=== PATIENT | female | born 1935 | race Caucasian/White ===

== ENCOUNTER 2020-01-30 19:58 | Emergency (ER) | payer OTHER ==
--- NOTE | 2020-01-30 20:09 | TELE ---
HPI Do you have fever,cough or shortness of breath?: Yes - General Reason For Visit: COVID TESTING Time Seen by Provider: 01/30/20 20:04 History Source: Patient Exam Limitations: No Limitations - History of Present Illness This interaction was via phone. 01/30/20 20:05 84 year old female overall malaise, tmax 100, abdominal pain, headache, has nasal congestion for the last 6 days. patient reports symptoms are waxing and waning. denies chest tightness or shortness of breath. patient sent to [facility] by PCP Dr. reinoso for covid testing. PMHX: breast cancer, hypertension 01/30/20 20:10 01/30/20 20:12 Past History - Travel History Traveled outside of the country in the last 30 days: No Close contact w/someone who was outside of country & ill: No - Medical History Allergies/Adverse Reactions: Allergies Allergy/AdvReac Type Severity Reaction Status Date / Time Seasonal allergies Allergy Uncoded 01/07/17 11:54 Home Medications: Ambulatory Orders Aspirin [Aspirin Ec] 81 mg PO DAILY 01/07/17 Exemestane [Aromasin] 25 mg PO DAILY tablet 01/07/17 Losartan/Hydrochlorothiazide [Losartan-Hctz 50-12.5 Mg Tab] 1 each PO DAILY tablet 01/07/17 Omeprazole 20 mg PO DAILY 01/07/17 HTN: Yes Review of Systems - Review of Systems Able to Perform ROS?: Yes Limited Setswana proficient: No Constitutional: Yes: Fever HEENTM: Yes: Nose Congestion Respiratory: No: Symptoms reported, See HPI, Cough, Orthopnea, Shortness of Breath, SOB with Exertion, SOB at Rest, Stridor, Wheezing, Productive cough, Hemoptysis, Other ABD/GI: Yes: Abdominal cramping. No: Symptoms Reported, See HPI, Abdominal Distended, Abd. Pain w/ defecation, Blood Streaked Bowels, Constipated, Diarrhea, Difficulty Swallowing, Nausea, Poor Appetite, Poor Fluid Intake, Rectal Bleeding, Vomiting, Indigestion, Tarry Stools, Other : No: Symptoms Reported, See HPI, Burning, Dysuria, Discharge, Frequency, Flank Pain, Hematuria, Incontinence, Pain, Urgency, Testicular Mass, Testicular Swelling, Lesions, Testicular Pain, Other *Physical Exam - Physical Exam HEENT: negative: Nasal Congestion Respiratory/Chest: positive: Other (unlabored breathing) Neurologic: positive: Fully Oriented, Alert, Normal Mood/Affect, Normal Response - Medical Decision Making 01/30/20 20:10 A: fever suspected covid P: covid test ordered. strict return precautions to ER reviewed with patient. patient verbalized understanding. Patient reports that she will follow-up with Dr. Jerome and if advice will come to the ER if necessary Discharge Diagnosis at time of Disposition: Suspected 2019 novel coronavirus infection - Referrals Follow-up Referral(s): Vu Reinoso MD [Primary Care Provider] - - Patient Instructions - Discharge Disposition: HOME Condition at time of Disposition: Stable
== END 2020-01-30 20:40 | disposition home or self-care (01) ==
LOC: JVIRT 19:58
DX: Z11.59 Encounter for screening for other viral diseases (principal)
CPT/HCPCS: Q3014-GT; U0003